=== PATIENT | male | born 1930 | race Caucasian/White ===

== ENCOUNTER 2016-07-23 17:07 | Emergency (ER) | payer MEDICARE, BC | END 2016-07-23 20:21 | disposition left against medical advice (07) | LOC: D.ER 17:07 | DX: M25.512 Pain in left shoulder (principal) ==

== ENCOUNTER 2016-08-13 08:09 | Emergency (ER) | payer MEDICARE, BC ==
[2016-08-13 08:55] LABS: BASOPHILS 0.6 % (0.0-2.0); EOSINOPHILS 7.2 % (0-7); HEMATOCRIT 34.2 % (42.0-54.0); HEMOGLOBIN 10.8 g/dL (13.5-17.5); IMMATURE GRANULOCYTES 0.1 % (0-5); LYMPHOCYTES 25.6 % (15-50); MCH 28.4 pg (26.0-34.0); MCHC 31.6 g/dL (31.0-37.0); MEAN PLATELET VOLUME 9.3 fL (7.4-10.4); MONOCYTES 10.8 % (2-11); NEUTROPHILS 55.7 % (40-80); PLATELET COUNT 171 10x3/uL (130-400); RDW 13.6 % (11.5-14.5); WBC 6.7 10x3/uL (4.8-10.8)
[2016-08-13 09:11] LABS: ALBUMIN 3.3 g/dL (3.4-5.0); ALKALINE PHOSPHATASE 83 U/L (46-116); ALT (SGPT) 23 U/L (10-68); BILIRUBIN - TOTAL 0.27 mg/dL (0.2-1.3); CALC OSMOLALITY 282 mosm/kg (275-300); CALCIUM 8.9 mg/dL (8.5-10.1); CHLORIDE - SERUM 104 mmol/L (98-107); CREATININE - SERUM 1.3 mg/dL (0.6-1.3); GLUCOSE 102 mg/dL (74-106); POTASSIUM - SERUM 3.8 mmol/L (3.5-5.1); PROTEIN - SERUM 6.8 g/dL (6.4-8.2); SODIUM 140 mmol/L (136-145); UREA NITROGEN 23 mg/dL (7-18); eGFR NON AFRICAN AMERICAN 55 mL/min (90-120)
[2016-08-13 09:16] LABS: TROPONIN-I < 0.017 ng/mL (0.000-0.060)
== END 2016-08-13 10:16 | disposition home or self-care (01) ==
LOC: D.ER 08:09
PROVIDERS: Emergency Medicine
DX: R06.00 Dyspnea, unspecified (principal); D64.9 Anemia, unspecified

== ENCOUNTER 2016-12-26 18:01 | Emergency (ER) | payer MEDICARE, BC | END 2016-12-26 21:32 | disposition home or self-care (01) | LOC: D.ER 18:01 | DX: M54.31 Sciatica, right side (principal); M25.551 Pain in right hip ==

== ENCOUNTER 2017-01-03 14:11 | Emergency (ER) | payer MEDICARE, BC | END 2017-01-03 15:54 | disposition home or self-care (01) | LOC: D.ER 14:11 | DX: M25.522 Pain in left elbow (principal) ==